=== PATIENT | female | born 2000 | race Two or more races ===

== ENCOUNTER 2019-12-12 07:39 | Emergency (ER) | payer OTHER ==
[2019-12-12] MEDS ORDERED: ACETAMINOPHEN 325 MG TABLET PO ONE (08:38)
[2019-12-12] MEDS ORDERED: NORMAL SALINE 1000 ML 1,000 ML IV ONE (08:41)
--- NOTE | 2019-12-12 08:43 | ER Document Report ---
ED General - General Chief Complaint: Back Pain Stated Complaint: LOW BACK PAIN/18 WEEKS Time Seen by Provider: 12/12/19 08:31 Primary Care Provider: JENNI CHO MD [Primary Care Provider] - Follow up tomorrow Mode of Arrival: Ambulatory Information source: Patient Notes: Patient is presently 17 weeks 6 days with lower back pain. Patient den ies any urinary symptoms vaginal bleeding or vaginal discharge. Patient is G1, P0. Patient is [facility] by [facility]. She reports pain started today. - HPI Onset: This morning Onset/Duration: Gradual Quality of pain: Achy Pain Level: 3 Associated symptoms: denies: Nonproductive cough, Productive cough, Leg swelling, Nausea, Vomiting, Weakness Exacerbated by: Movement Relieved by: Denies Similar symptoms previously: No Recently seen / treated by doctor: No - Related Data Allergies/Adverse Reactions: No Known Allergies Allergy (Verified 12/12/19 08:24) Home Medications: pre Past Medical History - General Information source: Patient - Social History Smoking Status: Never Smoker Frequency of alcohol use: None Drug Abuse: None Occupation: None Lives with: Family Family History: Reviewed & Not Pertinent Patient has homicidal ideation: No - Medical History Medical History: Negative Surgical Hx: Negative Review of Systems - Review of Systems Constitutional: No symptoms reported. denies: Fever EENT: No symptoms reported Cardiovascular: No symptoms reported. denies: Chest pain Respiratory: No symptoms reported. denies: Cough Gastrointestinal: No symptoms reported. denies: Abdominal pain, Nausea, Vomiting Genitourinary: No symptoms reported. denies: Dysuria, Flank pain Female Genitourinary: . denies: Vaginal discharge, Vaginal bleeding Musculoskeletal: Back pain Skin: No symptoms reported Hematologic/Lymphatic: No symptoms reported Neurological/Psychological: No symptoms reported Physical Exam - Vital signs Vitals: Temp Pulse Resp BP Pulse Ox 99.0 F 95 20 118/76 99 12/12/19 07:44 12/12/19 07:44 12/12/19 07:44 12/12/19 07:44 12/12/19 07:44 - General General appearance: Appears well, Alert In distress: None - HEENT Head: Normocephalic, Atraumatic Eyes: Normal Conjunctiva: Normal Nasal: Normal Mouth/Lips: Normal Mucous membranes: Normal Neck: Normal, Supple. No: Lymphadenopathy - Respiratory Respiratory status: No respiratory distress Chest status: Nontender Breath sounds: Normal. No: Rales, Rhonchi, Stridor, Wheezing Chest palpation: Normal - Cardiovascular Rhythm: Regular Heart sounds: S1 appreciated, S2 appreciated Murmur: No - Abdominal Inspection: Gravid female Distension: No distension Bowel sounds: Normal Tenderness: Nontender Organomegaly: No organomegaly - Back Back: Tender - lower lumbar paraspinal tenderness. No: CVA tenderness, Vertebra tenderness - Extremities General upper extremity: Normal inspection, Normal strength General lower extremity: Normal inspection, Normal strength - Neurological Neuro grossly intact: Yes Cognition: Normal Niraj Coma Scale Eye Opening: Spontaneous Warren Coma Scale Verbal: Oriented Niraj Coma Scale Motor: Obeys Commands Niraj Coma Scale Total: 15 - Psychological Associated symptoms: Normal affect, Normal mood - Skin Skin Temperature: Warm Skin Moisture: Dry Skin Color: Normal Course - Re-evaluation Re-evalutation: 12/12/19 10:43 Patient with mild blood and leukocyte esterase pain. Patient without any other acute findings on diagnostic evaluation today. Will culture the urine at this time and encourage outpatient follow-up with her LIFE SCIENCE TEACHER for recheck. The patien t presents with low back pain without signs of spinal cord compression, cauda equina syndrome, infection, aneurysm, or other serious etiology. The patient is neurologically intact. Given the extremely risk of these diagnoses further testing and evaluation for these possibilities does not appear to be indicated at this time. Patient has been instructed to return if the symptoms worsen or change in any way. 12/12/19 18:46 - Vital Signs Vital signs: Temp Pulse Resp BP Pulse Ox 97.7 F 102 H 16 108/68 99 12/12/19 11:12 12/12/19 11:12 12/12/19 11:12 12/12/19 11:12 12/12/19 11:12 - Laboratory Result Diagrams: 12/12/19 09:00 12/12/19 09:00 Laboratory results interpreted by me: 12/12/19 12/12/19 12/12/19 09:00 09:00 09:40 MCV 99 H MCH 34.7 H Sodium 135.9 L BUN 6 L Creatinine 0.37 L Urine Blood SMALL H Ur Leukocyte Esterase TRACE H Labs- All tests 24 hr 12/12/19 12/12/19 12/12/19 09:00 09:00 09:00 WBC 6.3 RBC 3.90 Hgb 13.5 Hct 38.7 MCV 99 H MCH 34.7 H MCHC 34.9 RDW 12.5 Plt Count 165 Lymph % (Auto) 22.9 Owen % (Auto) 8.9 Eos % (Auto) 1.1 Baso % (Auto) 0.5 Absolute Neuts (auto) 4.2 Absolute Lymphs (auto) 1.4 Absolute Monos (auto) 0.6 Absolute Eos (auto) 0.1 Absolute Basos (auto) 0.0 Seg Neutrophils % 66.6 Sodium 135.9 L Potassium 4.5 Chloride 104 Carbon Dioxide 26 Anion Gap 6 BUN 6 L Creatinine 0.37 L Est GFR ( Amer) > 60 Est GFR (MDRD) Non-Af > 60 Glucose 84 Calcium 9.6 Total Bilirubin 0.3 Direct Bilirubin 0.0 Neonat Total Bilirubin Not Reportable Neonat Direct Bilirubin Not Reportable Neonat Indirect Bili Not Reportable AST 20 ALT 18 Alkaline Phosphatase 57 Total Protein 6.9 Albumin 4.1 Urine Color Urine Appearance Urine pH Ur Specific Marion Urine Protein Urine Glucose (UA) Urine Ketones Urine Blood Urine Nitrite Urine Bilirubin Urine Urobilinogen Ur Leukocyte Esterase Urine WBC (Auto) Urine RBC (Auto) Urine Bacteria (Auto) Squamous Epi Cells Auto Urine Mucus (Auto) Urine Ascorbic Acid Blood Type A POSITIVE Rhogam Indicated RHOGAM NOT INDICATED 12/12/19 09:40 WBC RBC Hgb Hct MCV MCH MCHC RDW Plt Count Lymph % (Auto) Owen % (Auto) Eos % (Auto) Baso % (Auto) Absolute Neuts (auto) Absolute Lymphs (auto) Absolute Monos (auto) Absolute Eos (auto) Absolute Basos (auto) Seg Neutrophils % Sodium Potassium Chloride Carbon Dioxide Anion Gap BUN Creatinine Est GFR ( Amer) Est GFR (MDRD) Non-Af Glucose Calcium Total Bilirubin Direct Bilirubin Neonat Total Bilirubin Neonat Direct Bilirubin Neonat Indirect Bili AST ALT Alkaline Phosphatase Total Protein Albumin Urine Color YELLOW Urine Appearance CLEAR Urine pH 7.0 Ur Specific Marion 1.006 Urine Protein NEGATIVE Urine Glucose (UA) NEGATIVE Urine Ketones NEGATIVE Urine Blood SMALL H Urine Nitrite NEGATIVE Urine Bilirubin NEGATIVE Urine Urobilinogen NEGATIVE Ur Leukocyte Esterase TRACE H Urine WBC (Auto) 3 Urine RBC (Auto) 1 Urine Bacteria (Auto) 3+ Squamous Epi Cells Auto 2 Urine Mucus (Auto) RARE Urine Ascorbic Acid NEGATIVE Blood Type Rhogam Indicated - Diagnostic Test Radiology reviewed: Reports reviewed Discharge - Discharge Clinical Impression: Low back pain during Qualifiers: Trimester: third trimester Qualified Code(s): O26.893 - Other specified related conditions, third trimester UTI (urinary tract infection) Qualifiers: Urinary tract infection type: site unspecified Hematuria presence: with hematuria Qualified Code(s): N39.0 - Urinary tract infection, site not specified Condition: Stable Disposition: HOME, SELF-CARE Instructions: Cephalexin ([facility]), Low Back Pain ([facility]), Urinary Tract Infection ([facility]), Warm Packs ([facility]) Additional Instructions: Return immediately for any new or worsening symptoms Followup with your primary care provider, call tomorrow to make a followup appointment Urine culture is pending, will call if you need any different treatment Prescriptions: Cephalexin Monohydrate [Keflex 500 mg Capsule] 500 mg PO BID 3 Days #6 capsule Referrals: JENNI CHO MD [Primary Care Provider] - Follow up tomorrow
[2019-12-12] MEDS ORDERED: ACETAMINOPHEN SOLN 325 MG/10.15 ML UDCUP PO ONE ×2 (09:02→09:40)
[2019-12-12 09:19] LABS: ABSOLUTE EOSINOPHILS # (AUTO) 0.1 10^3/uL (0.0-0.6); ABSOLUTE LYMPHOCYTES (AUTO) 1.4 10^3/uL (0.5-4.7); ABSOLUTE MONOCYTES (AUTO) 0.6 10^3/uL (0.1-1.4); ABSOLUTE NEUT (AUTO) 4.2 10^3/uL (1.7-8.2); BASOPHILS % (AUTO) 0.5 % (0-2); EOSINOPHILS % (AUTO) 1.1 % (0-6); HEMATOCRIT 38.7 % (36.0-47.0); HEMOGLOBIN 13.5 g/dL (12.0-15.5); LYMPHOCYTES % (AUTO) 22.9 % (13-45); MEAN CORPUSCULAR HEMOGLOBIN 34.7 pg (27.0-33.4); MEAN CORPUSCULAR HGB CONC 34.9 g/dL (32.0-36.0); MEAN CORPUSCULAR VOLUME 99 fl (80-97); MONOCYTES % (AUTO) 8.9 % (3-13); PLATELET COUNT 165 10^3/uL (150-450); RED CELL DISTRIBUTION WIDTH 12.5 % (11.5-14.0); SEGMENTED NEUTROPHILS % (AUTO) 66.6 % (42-78); TOTAL CELLS COUNTED % (AUTO) 100 %; WHITE BLOOD COUNT 6.3 10^3/uL (4.0-10.5)
[2019-12-12 09:37] LABS: ALBUMIN 4.1 g/dL (3.5-5.0); ALKALINE PHOSPHATASE 57 U/L (38-126); ANION GAP 6 (5-19); ASPARTATE AMINO TRANSFERASE 20 U/L (14-36); BILIRUBIN,TOTAL 0.3 mg/dL (0.2-1.3); BLOOD UREA NITROGEN 6 mg/dL (7-20); CALCIUM 9.6 mg/dL (8.4-10.2); CARBON DIOXIDE 26 mmol/L (22-30); CHLORIDE 104 mmol/L (98-107); GLUCOSE 84 mg/dL (75-110); POTASSIUM 4.5 mmol/L (3.6-5.0); TOTAL PROTEIN 6.9 g/dL (6.3-8.2)
[2019-12-12 10:14] LABS: APPEARANCE,URINE CLEAR; BILIRUBIN,URINE NEGATIVE (NEGATIVE); COLOR,URINE YELLOW; GLUCOSE, URINE NEGATIVE (NEGATIVE); KETONES,URINE NEGATIVE (NEGATIVE); LEUKOCYTE ESTERASE,URINE TRACE (NEGATIVE); NITRITE,URINE NEGATIVE (NEGATIVE); PROTEIN,URINE NEGATIVE (NEGATIVE); URINE SPECIFIC GRAVITY 1.006; UROBILINOGEN,URINE NEGATIVE mg/dL (<2.0)
--- NOTE | 2019-12-12 10:24 | RADIOLOGY REPORT (SQ) ---
EXAM DESCRIPTION: U/S OB 14+ TRNABD 1GES W/O DOP IMAGES COMPLETED DATE/TIME: 12/12/2019 9:56 am REASON FOR STUDY: low back pain COMPARISON: None. TECHNIQUE: Limited transvaginal grayscale ultrasound for evaluation of specific requested obstetrica l parameters. LIMITATIONS: None. FINDINGS: CERVICAL LENGTH: 4.6 cm. Closed. KIM: 5.8 cm. FHR: 163 beats per minute. PRESENTATION: Cephalic. PLACENTA: Anterior ANATOMY: Not assessed OTHER: Estimated gestational age 16 weeks 6 days. Estimated due date 05/22/2020. Estimated we ight 117 g. IMPRESSION: LIMITED OBSTETRICAL ULTRASOUND WITH MEASURED PARAMETERS DELINEATED ABOVE. Trimester of : Second trimester - 13 weeks 1 day to 27 weeks 6 days. TECHNICAL DOCUMENTATION: JOB ID: [id number] 2010 [employer]- All Rights Reserved Reading location - IP/workstation name: [email or web address]
[2019-12-12 11:13] VITALS: BP 108/68
== END 2019-12-12 11:13 | disposition home or self-care (01) ==
LOC: ER 07:39
DX: O26.893 Other specified pregnancy related conditions, third trimester (principal); M54.5 Low back pain; O23.42 Unspecified infection of urinary tract in pregnancy, second trimester; Z3A.18 18 weeks gestation of pregnancy
CPT/HCPCS: 99284; 96360; 86900; 86901; 36415; 87086; 85025; 80053; 81001; 76805; J7030; J3490

== ENCOUNTER 2020-04-21 09:33 | Outpatient (CLI) | payer OTHER ==
--- NOTE | 2020-04-21 12:57 | RADIOLOGY REPORT (SQ) ---
EXAM DESCRIPTION: U/S PROFILE W/O STRESS IMAGES COMPLETED DATE/TIME: 04/21/2020 12:47 pm REASON FOR STUDY: BPP COMPARISON: None. TECHNIQUE: Limited bae-scale realtime and static images of the fetus to measure specified parameter s. LIMITATIONS: None. FINDINGS: HEART RATE: 153 beats per minute. KIM: 11.3 cm cm. MVP: 4.7 x 4.8 cm cm. BREATHING MOVEMENT: 2 points. MOVEMENT: 2 points. POSTURE AND TONE: 2 points. QUALITATIVE KIM: 2 points. OTHER: Vertex presentation. Gestation of 36 weeks 4 days. IMPRESSION: BIOPHYSICAL PROFILE: 02/14. Trimester of : Third - 28 weeks to delivery COMMENT: BREATHING MOVEMENTS: 2 POINTS: PRESENT 0 POINTS: ABSENT MOTION: 2 POINTS: PRESENT 0 POINTS: ABSENT TONE: 2 POINTS: PRESENT 0 POINTS: ABSENT AMNIOTIC FLUID VOLUME: 2 POINTS: LARGEST POCKET GREATER THAN 2 CM DEPTH. 0 POINTS: NO POCKET OF 2 CM. TECHNICAL DOCUMENTATION: JOB ID: [id number] 2010 [employer]- All Rights Reserved Reading location - IP/workstation name: [email or web address]
== END 2020-04-21 13:30 | disposition home or self-care (01) ==
LOC: LC 09:33
PROVIDERS: ATTEND Obstetrics & Gynecology
DX: O36.8330 Maternal care for abnormalities of the fetal heart rate or rhythm, third trimester, not applicable or unspecified (principal); Z3A.36 36 weeks gestation of pregnancy
CPT/HCPCS: 59025; 76819

== ENCOUNTER 2020-05-05 16:19 | Outpatient (CLI) | payer OTHER ==
--- NOTE | 2020-05-05 17:33 | Non Stress Test Report ---
Non Stress Test Datetime Report Generated by CPN: 05/05/2020 17:33 DEMOGRAPHIC Test Number: 1 Test Number: 1 EGA NST: 38.4 EGA NST: 36.4 INDICATION Indication for Study (NST) Other: Repeat NST Indication for Study (NST) Other: Repeat NST due to undefined decels in office VITAL SIGNS Temperature - NST: 99.0 Temperature - NST: 98.4 Pulse - NST: 110 Pulse - NST: 100 RESP - NST: 16 RESP - NST: 16 NBPSYS NST: 111 NBPSYS NST: 108 NBPDIA NST: 73 NBPDIA NST: 61 MONITORING Monitor Explained: Monitor Explained; Test Explained; Patient Verbalized Understanding Monitor Explained: Monitor Explained; Test Explained; Patient Verbalized Understanding Time on Monitor: 05/05/2020 16:31 Time on Monitor: 04/21/2020 09:49 Time off Monitor: 05/05/2020 16:57 Time off Monitor: 04/21/2020 12:11 NST Duration: 26 NST Duration: 142 NST INTERVENTIONS NST Interventions: PO Hydration; Reposition Patient NST Interventions: PO Hydration; Reposition Patient Physician Notified NST: Dr. Finnegan BABY A: [id number] BABY A Movement : Present Movement : Present Contraction Frequency : None Contraction Frequency : irreg FHR Baseline : 115 FHR Baseline : 135 Accelerations : 15X15 Accelerations : 15X15 Decelerations : None Decelerations : Variable Variability : Moderate 6-25bpm Variability : Moderate 6-25bpm NST Review: Meets Criteria for Reactive NST NST Review: Meets Criteria for Reactive NST NST Review and Verified By : Meli Matute RN NST Results: Reactive NST Results: Reactive NST COMMENTS NST Comments: noted 3 variable decels during monitoring. Provider aware. BPP done. NST REPORT Report Trigger: Send Report
== END 2020-05-05 17:22 | disposition home or self-care (01) ==
LOC: LC 16:19
PROVIDERS: ATTEND Obstetrics & Gynecology Gynecology
DX: O36.8330 Maternal care for abnormalities of the fetal heart rate or rhythm, third trimester, not applicable or unspecified (principal); Z3A.38 38 weeks gestation of pregnancy
CPT/HCPCS: 59025

== ENCOUNTER 2020-05-10 18:20 | Inpatient (IN) | payer OTHER ==
[2020-05-10] MEDS ORDERED: OXYTOCIN 10 UNIT/ML VIAL ONE (18:24)
[2020-05-10] MEDS ORDERED: LIDOCAINE 1% INJ-PF (10 MG/ML) 30 ML SDV ONE (18:24)
[2020-05-10] MEDS ORDERED: OXYTOCIN/0.9 % SODIUM CHLORIDE 30 UNIT/500 ML RTUINJ ONE (18:24)
[2020-05-10] MEDS ORDERED: MISOPROSTOL 0.2 MG TABLET ONE (18:24)
[2020-05-10] MEDS ORDERED: MAG HYDROX/AL HYDROX/SIMETH SUSP 30 ML UDCUP PO PRN (18:28)
[2020-05-10] MEDS ORDERED: OXYTOCIN/0.9 % SODIUM CHLORIDE 30 UNIT/500 ML RTUINJ IV PRN (18:28)
[2020-05-10] MEDS ORDERED: DINOPROSTONE 10 MG VAGINAL INSERT.SR PV ONE (18:28)
[2020-05-10] MEDS ORDERED: RINGERS SOLUTION,LACTATED 300 ML IV ONE (18:28)
[2020-05-10] MEDS ORDERED: ACETAMINOPHEN 325 MG TABLET PO PRN (18:28)
[2020-05-10] MEDS ORDERED: RINGERS SOLUTION,LACTATED 1,000 ML IV PRN (18:28)
[2020-05-10] MEDS ORDERED: ZOLPIDEM TARTRATE 5 MG TABLET PO PRN (18:28)
[2020-05-10 18:59] LABS: APPEARANCE,URINE CLEAR; BILIRUBIN,URINE NEGATIVE (NEGATIVE); COLOR,URINE YELLOW; GLUCOSE, URINE NEGATIVE (NEGATIVE); KETONES,URINE NEGATIVE (NEGATIVE); LEUKOCYTE ESTERASE,URINE NEGATIVE (NEGATIVE); NITRITE,URINE NEGATIVE (NEGATIVE); PROTEIN,URINE NEGATIVE (NEGATIVE); URINE SPECIFIC GRAVITY 1.017; UROBILINOGEN,URINE NEGATIVE mg/dL (<2.0)
[2020-05-10 19:02] LABS: ABSOLUTE BASOPHILS # (AUTO) 0.1 10^3/uL (0.0-0.2); ABSOLUTE EOSINOPHILS # (AUTO) 0.1 10^3/uL (0.0-0.6); ABSOLUTE LYMPHOCYTES (AUTO) 1.7 10^3/uL (0.5-4.7); ABSOLUTE MONOCYTES (AUTO) 0.9 10^3/uL (0.1-1.4); ABSOLUTE NEUT (AUTO) 6.8 10^3/uL (1.7-8.2); BASOPHILS % (AUTO) 0.5 % (0-2); EOSINOPHILS % (AUTO) 0.9 % (0-6); HEMATOCRIT 36.2 % (36.0-47.0); HEMOGLOBIN 12.4 g/dL (12.0-15.5); LYMPHOCYTES % (AUTO) 17.5 % (13-45); MEAN CORPUSCULAR HEMOGLOBIN 31.6 pg (27.0-33.4); MEAN CORPUSCULAR HGB CONC 34.2 g/dL (32.0-36.0); MEAN CORPUSCULAR VOLUME 93 fl (80-97); MONOCYTES % (AUTO) 9.8 % (3-13); PLATELET COUNT 178 10^3/uL (150-450); RED BLOOD COUNT 3.92 10^6/uL (3.72-5.28); RED CELL DISTRIBUTION WIDTH 13.8 % (11.5-14.0); SEGMENTED NEUTROPHILS % (AUTO) 71.3 % (42-78); TOTAL CELLS COUNTED % (AUTO) 100 %; WHITE BLOOD COUNT 9.5 10^3/uL (4.0-10.5)
[2020-05-10] MEDS ORDERED: DINOPROSTONE 10 MG VAGINAL INSERT.SR ONE (19:12)
[2020-05-10 19:22] LABS: URINE AMPHETAMINES SCREEN NEGATIVE; URINE BARBITURATES SCREEN NEGATIVE; URINE BENZODIAZEPINES SCREEN NEGATIVE; URINE COCAINE SCREEN NEGATIVE; URINE MARIJUANA (THC) SCREEN NEGATIVE; URINE METHADONE SCREEN NEGATIVE; URINE PHENCYCLIDINE SCREEN NEGATIVE
[2020-05-10] MEDS ORDERED: ACETAMINOPHEN SOLN 325 MG/10.15 ML UDCUP ONE (23:21)
[2020-05-11] MEDS ORDERED: ACETAMINOPHEN SOLN 325 MG/10.15 ML UDCUP PO ONE (00:30)
--- NOTE | 2020-05-11 04:04 | Admission Physical ---
Datetime Report Generated by CPN: 05/11/2020 04:04 CURRENT ADMISSION Chief Complaint: Scheduled Induction of Labor Indication for Induction- Other: Induction for IUGR Admit Impression : Term, Intrauterine Admit Plan: Admit to Unit; Initiate Labor Induction Protocol ALLERGIES Medication Allergies: No Medication Allergies: pollen extracts (05/05/2020) Latex: No Latex Allergies Food Allergies: none Environmental Allergies: pollen OBSTETRICAL HISTORY EDC: 05/15/2020 00:00 : 1 Para: 0 Term: 0 : 0 SAB: 0 IAB: 0 Ectopic: 0 Livin Cesareans: 0 VBACs: 0 Multiple Births: 0 Gestational Diabetes: No Rh Sensitization: No Incompetent Cervix: No ABIMAEL: No Infertility: No ART Treatment: No Uterine Anomaly: No IUGR: Yes Hx Previous C/S: No Macrosomia: No Hx Loss/Stillborn: No PIH: No Hx : No Placenta Previa/Abruption: No Depression/PP Depression: No PTL/PROM: No Post Hemorrhage: No Current Procedures: Ultrasound; NST Obstetrical History Comments: G1- current IUGR 4% SEE RECORDS Alcohol: No Marijuana : No Cocaine: No Other Illicit Drugs: No Cigarettes: Never Smoker. [id number] MEDICAL HISTORY Diabetes: No Blood Transfusion: No Pulmonary Disease (Asthma, TB): No Breast Disease: No Hypertension: No Core Cutter And Reamer Surgery: No Heart Disease: No Hosp/Surgery: No Autoimmune Disorder: No Anesthetic Complications: No Kidney Disease: No Abnormal Pap Smear: No Neuro/Epilepsy: No Psychiatric Disorders: No Other Medical Diseases: No Hepatitis/Liver Disease: No Significant Family History: No Varicosities/Phlebitis: No Trauma/Violence : No Thyroid Dysfunction: No INFECTIOUS HISTORY Gonorrhea: No Genital Herpes: No Chlamydia: No Tuberculosis: No Syphilis: No Hepatitis: No HIV/AIDS Exposure: No Rash or Viral Illness: No HPV: No PHYSICAL EXAM General: Normal HEENT: Normal Neurologic: Normal Thyroid: Normal Heart: Normal Lungs: Normal Breast: Deferred Back: Normal Abdomen: Normal Genitourinary Exam: Normal Extremities: Normal DTRs: Normal Pelvic Type: Adequate Vital Signs: Reviewed VAGINAL EXAM Dilatation: 1 Effacement: 50 Station: -2 MEMBRANES Pooling: Negative Membranes: Intact FETUS A EGA: 39.3 Monitoring: External US FHR- Baseline: 120 Variability: Moderate 6-25bpm Decelerations: None FHR Category: Category I Admit Comment: efw 7 lbs PLANS FOR LABOR AND DELIVERY Labor and Delivery: None Pain Management: Epidural Feeding Preference: Breast Benefit of Breast Feed Discussed: Yes Circumcision: Yes INFORMED CONSENT Signature: with User ID: [email or web address]
[2020-05-11] MEDS ORDERED: DINOPROSTONE 10 MG VAGINAL INSERT.SR PV ONE (08:18)
[2020-05-11] MEDS ORDERED: DINOPROSTONE 10 MG VAGINAL INSERT.SR ONE (09:05)
[2020-05-11] MEDS ORDERED: FENTANYL CITRATE INJ/PF 100 MCG/2 ML AMPUL IV ONE (09:16)
[2020-05-11] MEDS ORDERED: PROMETHAZINE HCL INJ 25 MG/1 ML VIAL IV ONE (09:16)
[2020-05-11] MEDS ORDERED: PROMETHAZINE HCL INJ 25 MG/1 ML VIAL ONE (09:20)
[2020-05-11] MEDS ORDERED: FENTANYL CITRATE INJ/PF 100 MCG/2 ML AMPUL ONE (09:21)
[2020-05-11] MEDS ORDERED: ACETAMINOPHEN 1,000 MG/100 ML RTUPB IV ONE (12:33)
[2020-05-11] MEDS ORDERED: ACETAMINOPHEN 1,000 MG/100 ML RTUPB IV SCH (13:00)
[2020-05-11] MEDS ORDERED: ONDANSETRON HCL INJ/PF 4 MG/2 ML SDV ONE (13:58)
[2020-05-11] MEDS ORDERED: NALBUPHINE HCL INJ 10 MG/1 ML AMPULE INJ ONE (18:42)
[2020-05-11] MEDS ORDERED: CEFTRIAXONE 1 GM/D5W RTU 1 GM/50 ML RTUPB IV ONE (18:45)
[2020-05-11] MEDS ORDERED: NALBUPHINE HCL INJ 10 MG/1 ML AMPULE ONE (18:47)
[2020-05-11] MEDS ORDERED: CEFTRIAXONE INJ 1000 MG VIAL ONE (18:47)
[2020-05-12] MEDS ORDERED: EPHEDRINE SULFATE INJ 50 MG/1 ML AMPULE ONE (05:09)
[2020-05-12] MEDS ORDERED: FENTANYL/BUPIVACAINE/NS/PF 300 MCG/150 ML RTUINJ EPI ONE (05:09)
[2020-05-12] MEDS ORDERED: ROPIVACAINE HCL 0.2% INJ/PF (2 MG/ML) 20 ML SDV ONE (05:10)
[2020-05-12] MEDS ORDERED: MAGNESIUM HYDROXIDE SUSP 30 ML UDCUP PO PRN (12:09)
[2020-05-12] MEDS ORDERED: ZOLPIDEM TARTRATE 5 MG TABLET PO PRN (12:09)
[2020-05-12] MEDS ORDERED: DIPHENHYDRAMINE HCL 25 MG CAPSULE PO PRN (12:09)
[2020-05-12] MEDS ORDERED: MEASLES,MUMPS&RUBELLA VACC/PF 0.5 ML VIAL SUBCUT PRN (12:09)
[2020-05-12] MEDS ORDERED: ACETAMINOPHEN 650 MG SUPP.RECT PR PRN (12:09)
[2020-05-12] MEDS ORDERED: NA PHOS,M-B/NA PHOS,DI-BA (ADULT) 133 ML ENEMA PR PRN (12:09)
[2020-05-12] MEDS ORDERED: PROMETHAZINE HCL INJ 25 MG/1 ML VIAL IV PRN (12:09)
[2020-05-12] MEDS ORDERED: OXYTOCIN/0.9 % SODIUM CHLORIDE 30 UNIT/500 ML RTUINJ IV PRN (12:09)
[2020-05-12] MEDS ORDERED: AMPICILLIN SOD/SULBACTAM 3 GM VIAL IV ONE ×2 (12:09→12:27)
[2020-05-12] MEDS ORDERED: PROMETHAZINE HCL 25 MG SUPP.RECT PR PRN (12:09)
[2020-05-12] MEDS ORDERED: DIBUCAINE 1% OINTMENT 28 GM TP PRN (12:09)
[2020-05-12] MEDS ORDERED: BENZOCAINE/MENTHOL AEROSOL SPRAY 56 ML TOP PRN (12:09)
[2020-05-12] MEDS ORDERED: GLYCERIN/WITCH HAZEL LEAF 1 EACH MED..WIPE TP PRN (12:09)
[2020-05-12] MEDS ORDERED: PSEUDOEPHEDRINE HCL 30 MG TABLET PO PRN (12:09)
[2020-05-12] MEDS ORDERED: PROMETHAZINE HCL 25 MG TABLET PO PRN (12:09)
[2020-05-12] MEDS ORDERED: DIPH/PERTUSS(ACELL)/TETANUS VAC/PF 0.5 ML SYR (>=10YO) IM PRN (12:09)
[2020-05-12] MEDS ORDERED: AMPICILLIN SOD/SULBACTAM 3 GM VIAL ONE (13:03)
--- NOTE | 2020-05-12 14:43 | Delivery Summary ---
Del Sum A-C Datetime Report Generated by CPN: 05/12/2020 14:42 DELIVERY PERSONNEL DELIVERY PERSONNEL: [id number] Delivery Doctor:: Maria Guadalupe Short MD Nurse Infant Toddler Lead Teacher Certified:: Carol Madrigal CNM Labor and Delivery Nurse:: Katie Pagan RNsupervisor slate splitting Nurse:: Sera Mon RN Nursery Nurse:: Lavonne Durand RN MATERNAL INFORMATION Delivery Anesthesia: Local; Epidural Medications During Delivery: 1% lidocaine Medications After Delivery: Pitocin 30 Units in 500ml NS/D5W Delivery QBL: 100 Maternal Complications: None Provider Comments: Vacuum assisted vag delivery of male DAVE. Dr. Short applied vac 450 mmhg x1 pull, no pop offs. Bodyand cord delivered by me. Infant vigorous, to mothers abd, dried and stimulated. Cord clamped x 2 cut per FOB. Lacerations repaired as above. Retained placenta with difficult manual removal after 30 minutes. QBL 50. Fundus firmed immediately. Placenta sent for pathology. Mother and infant stable. LABOR SUMMARY EDC: 05/15/2020 00:00 No. Babies in Womb: 1 Attempted: No Labor Anesthesia: Epidural LABOR INFORMATION Reason for Induction: Intrauterine Growth Retardation Complete Dilatation: 05/12/2020 09:21 Cervical Ripening Agents: Cervidil Other Ripening Agents: cervidil removed Oxytocin: Induction Group B Beta Strep: Negative Antibiotics # of Doses: n/a Name of Antibiotic Given: n/a Steroids Given: None Reason Steroids Not Administered: Not Applicable MEMBRANES Membranes Rupture Method: Spontaneous Rupture of Membranes: 05/12/2020 04:49 Length of Rupture (hr): 6.38 Amniotic Fluid Color: Clear Amniotic Fluid Amount: Moderate Amniotic Fluid Odor: Normal STAGES OF LABOR Stage 2 hr: 1 Stage 2 min: 51 Stage 3 hr: 0 Stage 3 min: 33 VAGINAL DELIVERY Episiotomy: None Laceration #1: Perineal Laceration Extension #1: First Degree Laceration Repair: Yes Laceration Repair Note: 2.0 chromic used for repair of perineal and labial lacerations in usual fashion under epidural anesthesia Sponge Count Correct: Yes CSECTION DELIVERY Primary Indication: N/A Secondary Indication: N/A CSection Incidence: N/A Labor: N/A Elective: N/A CSection Incision: N/A BABY A INFORMATION Infant Delivery Date/Time: 05/12/2020 11:12 Method of Delivery: Vaginal Nurse Controlled Delivery: No Born in Route : No : N/A Forceps: N/A Vacuum Extraction: Successful Shoulder Dystocia : No PRESENTATION/POSITION BABY A Presentation: Cephalic Cephalic Presentation: Vertex Vertex Position: Left Occipital Anterior Breech Presentation: N/A PLACENTA INFORMATION BABY A Placenta Delivery Time : 05/12/2020 11:45 Placenta Method of Delivery: Manual Removal Placenta Status: Delivered SCORES BABY A Heart Rate 1 min: >100 bpm Resp Effort 1 min: Good Cry Reflex Irritability 1 min: Cough or Sneeze or Pulls Away Muscle Tone 1 min: Active Motion Color 1 min: Blue/Pale SCORE 1 MIN: 8 Heart Rate 5 min: >100 bpm Resp Effort 5 min: Good Cry Reflex Irritability 5 min: Cough or Sneeze or Pulls Away Muscle Tone 5 min: Active Motion Color 5 min: Body [place], Extremities Blue SCORE 5 MIN: 9 INFORMATION BABY A Gestational Age at Delivery: 39.4 Gestational Status: Full Term- 39- 40.6 Weeks Outcome : Liveborn Condition : Stable Sex: Male IDENTIFICATION BABY A Verification Date/Time: 05/12/2020 11:33 ID Band Number: [id number] Mother's Name Verified: Yes RN Verifying : Kate Pagan RN Additional Verifying Personnel: Regine Plunkett JEWELRY RACKER WEIGHT/LENGTH BABY A Infant Birthweight (gm): 2427 Infant Weight (lb): 5 Infant Weight (oz): 6 Infant Length (in): 18.25 Infant Length (cm): 46.36 CORD INFORMATION BABY A No. Cord Vessels: 3 Nuchal Cord : N/A Cord Blood Taken: Yes-For Storage (Mom's Blood type +) Suction: None ASSESSMENT BABY A Skin to Skin: Yes Skin to Skin Time (min): 60 BABY B INFORMATION : N/A SIGNATURES Assignment: Maria Guadalupe Han, MD Signature: with User ID: [email or web address] : with User ID: [email or web address] : I was personally available for consultation and serving as supervising physician for the MLP.
--- NOTE | 2020-05-12 14:43 | Birth Certificate Data ---
Cert Data Datetime Report Generated by CPN: 05/12/2020 14:42 CERTIFICATE DATA Delivery Provider: Maria Guadalupe Short MD (04/21/2020 09:34:Sera Mon RN) 47a. Care: Yes (04/21/2020 09:34:Myesha Ramesh RN) 47b. Date of First Visit: 12/06/2019 00:00 (04/21/2020 09:34:Myesha Ramesh RN) 47c. Date of Last Visit: 05/08/2020 00:00 (04/21/2020 09:34:Myesha Ramesh RN) 47d. Number of Visits: 12 (04/21/2020 09:34:Myesha Ramesh RN) 48a. Number of Prev Live Births: 0 (04/21/2020 09:34:Myesha Ramesh RN) 48b. Now Livin (04/21/2020 09:34:Katie Pagan RN) 48c. Live Births Now : 0 (04/21/2020 09:34:QS system process) 48e. Losses: 0 (04/21/2020 09:34:Myesha Ramesh RN) RISK FACTORS IN THIS 49a. Diabetes: No (04/21/2020 09:34:Guerita Bustamante RN) 49b. Hypertension: No (04/21/2020 09:34:Guerita Bustamante RN) 49c. Previous Births: 0 (04/21/2020 09:34:Jaki Bonilla RN) 49d. Stillborns: No (04/21/2020 09:34:Myesha Ramesh RN) 49d. IUGR: Yes (04/21/2020 09:34:Myesha Ramesh RN) 49e. Infertility Treatment: No (04/21/2020 09:34:Guerita Bustamante RN) 49f. Previous Cesareans: 0 (04/21/2020 09:34:Jaki Bonilla RN) Mother's Height 50b. Height Inches: 59 (05/12/2020 14:17:QS system process) Mother's Weight 51a. Pre- Weight (lbs): 118 (04/21/2020 09:34:Myesha Ramesh RN) 51b. Weight at Delivery (lbs): 141 (05/12/2020 14:17:QS system process) 52. Dt Last Normal Menses Began: 08/09/2019 00:00 (04/21/2020 09:34:Myesha Ramesh RN) Infections Present/Treated 53a. Gonorrhea: No (04/21/2020 09:34:Guerita Bustamante RN) Results this Hospital Visit : Negative (04/21/2020 09:34:Sera Mon RN) 53b. Syphilis: No (04/21/2020 09:34:Guerita Bustamante RN) Results this Hospital Visit: NONREACTIVE (05/10/2020 18:49:QS system process) 53c. Chlamydia: No (04/21/2020 09:34:Guerita Bustamante RN) Results this Hospital Visit: Negative (04/21/2020 09:34:Sera Mon RN) 53d. Hepatitis B: No (04/21/2020 09:34:Myesha Ramesh RN) Results this Hospital Visit: Negative (04/21/2020 09:34:Sera Mon RN) 53e. Hepatitis C: Negative (04/21/2020 09:34:Sera Mon RN) 53h. Mother Tested for HBsAG: Yes (04/21/2020 09:34:Sera Mon RN) 53i. Date Tested: 12/06/2019 00:00 (04/21/2020 09:34:Sera Mon RN) 53j. Test Result: Negative (04/21/2020 09:34:Sera Mon RN) Obstetric Procedures 54a, b, c. Obstetric Procedures: Ultrasound; NST (04/21/2020 09:34:Myesha Ramesh RN) Cigarette Smoking Cigarette Smoking: Never Smoker. [id number] (04/21/2020 09:34:Myesha Ramesh RN) 55a. 3 Months Before Preg - Ci (04/21/2020 09:34:Guerita Bustamante RN) 55a. Packs: 0 (04/21/2020 09:34:Guerita Bustamante RN) 55b. 1st Trimester of Preg- Ci (04/21/2020 09:34:Guerita Bustamante RN) 55b. Packs: 0 (04/21/2020 09:34:Guerita Bustamante RN) 55c. 2nd Trimester of Preg- Ci (04/21/2020 09:34:Guerita Bustamante RN) 55c. Packs: 0 (04/21/2020 09:34:Gueirta Bustamante RN) 55d. 3rd Trimester of Preg- Ci (04/21/2020 09:34:Guerita Bustamante RN) 55d. Packs: 0 (04/21/2020 09:34:Guerita Bustamante RN) Onset of Labor 56a. PROM >12 Hrs: 6.38 (04/21/2020 09:34:QS system process) 57a. Induction of Labor: Induction (04/21/2020 09:34:Sera Mon RN) 57a. Induction of Labor: Cervidil (05/11/2020 09:50:Sera Mon RN) 57a. Induction of Labor: cervidil removed (05/11/2020 21:11:Guerita Bustamante RN) 57c. Non-Vertex Presentation A: Vertex (04/21/2020 09:34:Sera Mon RN) 57d. Steroids - Lung Mat: None (04/21/2020 09:34:Sera Mon RN) 57d. Steroids - Lung Mat: Not Applicable (04/21/2020 09:34:Sera Mon RN) 57g. Moderate/Heavy Meconium: Clear (05/12/2020 04:49:Guerita Bustamante RN) 57h. Intolerance of Labor: N/A (04/21/2020 09:34:Katie Pagan RN) : N/A (04/21/2020 09:34:Katie Pagan RN) 57i. Epidural/Spinal Anesthesia: Epidural (04/21/2020 09:34:Sera Mon RN) Method of Delivery 58a. Forceps - Unsuccessful A: N/A (04/21/2020 09:34:Sera Mon RN) 58b. Vacuum - Unsuccessful A: Successful (04/21/2020 09:34:Sera Mon RN) 58c. Presentation at 58c. Presentation at - A : Vertex (04/21/2020 09:34:Sera Mon RN) 58c. Presentation at - A : N/A (04/21/2020 09:34:Sera Mon RN) 58c. Presentation at - A : Cephalic (05/12/2020 06:55:Guerita Bustamante RN) Final Route and Method of Del 58d. Baby A Route/Delivery: Vaginal (04/21/2020 09:34:Sera Mon RN) 58e. Trial of Labor Attempted: No (04/21/2020 09:34:Sera Mon RN) 58e. Trial of Labor Attempted A: N/A (04/21/2020 09:34:Sera Mon RN) 58e. Trial of Labor Attempted B: N/A (04/21/2020 09:34:Sera Mon RN) Maternal Morbidity 59b. 3rd or 4th Degree Lacs: Perineal (04/21/2020 09:34:Sera Elieser, RN) Birthweight Baby A: 2427 (04/21/2020 09:34:Katie Pagan, RN) 60a. Pounds : 5 (04/21/2020 09:34:QS system process) 60b. Ounces: 6 (04/21/2020 09:34:QS system process) 61. GA at Delivery Baby A: 39.4 (04/21/2020 09:34:Sera Innacristoferamarilis, RN) : Full Term- 39- 40.6 Weeks (04/21/2020 09:34:QS system process) 62a. 5 Minute Baby A: 9 (04/21/2020 09:34:QS system process)
[2020-05-12] MEDS: FERROUS SULFATE 325 MG TABLET PO SCH (17:01)
[2020-05-12] MEDS: DOCUSATE SODIUM 100 MG CAPSULE PO SCH (17:01)
[2020-05-12] MEDS: IBUPROFEN 800 MG TABLET PO SCH ×2 (17:02→23:01)
[2020-05-12] MEDS: FAMOTIDINE 20 MG TABLET PO SCH (23:02)
[2020-05-13] MEDS: IBUPROFEN 800 MG TABLET PO SCH ×2 (00:46→05:45)
[2020-05-13] MEDS: FAMOTIDINE 20 MG TABLET PO SCH ×2 (00:47→11:36)
[2020-05-13 07:22] LABS: HEMATOCRIT 30.8 % (36.0-47.0); MEAN CORPUSCULAR HEMOGLOBIN 31.2 pg (27.0-33.4); MEAN CORPUSCULAR HGB CONC 33.5 g/dL (32.0-36.0); MEAN CORPUSCULAR VOLUME 93 fl (80-97); PLATELET COUNT 161 10^3/uL (150-450); RED BLOOD COUNT 3.31 10^6/uL (3.72-5.28); RED CELL DISTRIBUTION WIDTH 14.1 % (11.5-14.0); WHITE BLOOD COUNT 12.4 10^3/uL (4.0-10.5)
[2020-05-13 07:29] LABS: HEMOGLOBIN 10.3 g/dL (12.0-15.5)
[2020-05-13 08:09] VITALS: BP 114/58
[2020-05-13] MEDS ORDERED: PRENATAL VITAMIN W DHA CAPSULE PO SCH (10:00)
[2020-05-13] MEDS ORDERED: SENNOSIDES/DOCUSATE 8.6-50 MG 1 EACH TABLET PO SCH (10:00)
[2020-05-13] MEDS: FERROUS SULFATE 325 MG TABLET PO SCH (11:35)
[2020-05-13] MEDS: DOCUSATE SODIUM 100 MG CAPSULE PO SCH (11:35)
--- NOTE | 2020-05-13 12:02 | PDOC PROGRESS REPORT ---
Subjective-OB Progress Note for:: 05/13/20 Subjective: 19yo G1 now P1 s/p VAVD ppd 1. Reports pain well controlled with medication, no other concerns at this time. Physical Exam (OB) Vital Signs: Temp Pulse Resp BP Pulse Ox 97.9 F 99 18 114/58 L 99 05/13/20 10:00 05/13/20 07:49 05/13/20 07:49 05/13/20 07:49 05/13/20 07:49 Intake & Output 05/12/20 05/13/20 05/14/20 06:59 06:59 06:59 Intake Total 1080 Output Total 3102 Balance -2021 - General General Appearance: Appears well In distress: None - PIH/Pre-Eclampsia DTR's: 1 + Clonus: Negative Headache: Absent Epigastric Pain: No Visual Changes: No - Maternal Morbidity 59. Maternal Morbidity (serious complications experinced by the mother associated with labor and delivery: None of the above - Episiotomy/Laceration Site Condition: Well Approximated - Lochia Lochia Amount: Scant < 10 ml Lochia Color: Rubra/Red - Abdomen Description: Soft Hernia Present: No Fundal Description: Firm Fundal Height: u/u - u/2 - Respiratory Respiratory Status: No respiratory distress - Extremities Upper extremity: Normal inspection Lower extremities: Normal inspection - Neurological Cognition: Normal Orientation: AAOx4 - Psychological Associated symptoms: Normal affect, Normal mood Objective-Diagnostic Laboratory: 05/13/20 06:30 05/13/20 06:30 WBC 12.4 H RBC 3.31 L Hgb 10.3 L D Hct 30.8 L MCV 93 MCH 31.2 MCHC 33.5 RDW 14.1 H Plt Count 161 05/10/20 18:25 Clean Catch Midstream Urine Culture - Final 5,000 col/ml Assessment and Plan(PN) - Assessment and Plan (1) Laceration, obstetrical, first degree Is this a current diagnosis for this admission?: Yes Plan: continue to monitor for s/s of infection (2) Non-reassuring electronic monitoring tracing Is this a current diagnosis for this admission?: Yes Plan: delivered (3) Vacuum-assisted vaginal delivery Is this a current diagnosis for this admission?: Yes Plan: routine pp care (4) Retained placenta without hemorrhage Is this a current diagnosis for this admission?: Yes Plan: continue to monitor for s/s of infection (5) IUGR (intrauterine growth restriction) affecting care of mother Qualifiers: Fetus number: single or unspecified fetus Trimester: third trimester Qualified Code(s): O36.5930 - Maternal care for other known or suspected poor growth, third trimester, not applicable or unspecified Is this a current diagnosis for this admission?: Yes Plan: delivered, doing well. at time of visit - Time Spent with Patient Time with patient: Less than 15 minutes Medications reviewed and adjusted accordingly: Yes - Disposition Anticipated Discharge Disposition: Home, Self Care Anticipated Discharge Timeframe: within 24 hours
--- NOTE | 2020-05-13 14:14 | PDOC DISCHARGE SUMMARY ---
Impression - Admit/DC Date/PCP Admission Date/Primary Care Provider: 05/10/20 18:20 JENNI CHO MD Discharge Date: 05/13/20 - Discharge Diagnosis (1) Laceration, obstetrical, first degree Is this a current diagnosis for this admission?: Yes (2) Non-reassuring electronic monitoring tracing Is this a current diagnosis for this admission?: Yes (3) Vacuum-assisted vaginal delivery Is this a current diagnosis for this admission?: Yes (4) Retained placenta without hemorrhage Is this a current diagnosis for this admission?: Yes (5) IUGR (intrauterine growth restriction) affecting care of mother Is this a current diagnosis for this admission?: Yes - Assessment Summary: 19yo G2 now P1 s/p ppd 1. Desires early discharge, ok'd by motor coach bus driver- stable and ready for discharge. Denies any concerns, understands warning s/s. - Additional Information Resuscitation Status: Full Code Discharge Diet: As Tolerated, Regular Discharge Activity: Activity As Tolerated, Walk Frequently Referrals: JENNI CHO MD [Primary Care Provider] - Prescriptions: Ibuprofen [Motrin 800 mg Tablet] 800 mg PO Q8HP PRN #20 tablet PRN Reason: Docusate Sodium [Colace 100 mg Capsule] 100 mg PO BID #60 capsule Home Medications: 95/Iron Fum/Folic/Dha [ + Dha Combo Pack] 1 each PO DAILY 04/21/20 Docusate Sodium [Colace 100 mg Capsule] 100 mg PO BID #60 capsule 05/13/20 Ibuprofen [Motrin 800 mg Tablet] 800 mg PO Q8HP PRN #20 tablet 05/13/20 Hospital Course 59. Maternal Morbidity (serious complications experinced by the mother associated with labor and delivery: None of the above Results Laboratory Results: WBC 12.4 10^3/uL (4.0-10.5) H 05/13/20 06:30 RBC 3.31 10^6/uL (3.72-5.28) L 05/13/20 06:30 Hgb 10.3 g/dL (12.0-15.5) L D 05/13/20 06:30 Hct 30.8 % (36.0-47.0) L 05/13/20 06:30 MCV 93 fl (80-97) 05/13/20 06:30 MCH 31.2 pg (27.0-33.4) 05/13/20 06:30 MCHC 33.5 g/dL (32.0-36.0) 05/13/20 06:30 RDW 14.1 % (11.5-14.0) H 05/13/20 06:30 Plt Count 161 10^3/uL (150-450) 05/13/20 06:30 Lymph % (Auto) 17.5 % (13-45) 05/10/20 18:49 [place] % (Auto) 9.8 % (3-13) 05/10/20 18:49 Eos % (Auto) 0.9 % (0-6) 05/10/20 18:49 Baso % (Auto) 0.5 % (0-2) 05/10/20 18:49 Absolute Neuts (auto) 6.8 10^3/uL (1.7-8.2) 05/10/20 18:49 Absolute Lymphs (auto) 1.7 10^3/uL (0.5-4.7) 05/10/20 18:49 Absolute Monos (auto) 0.9 10^3/uL (0.1-1.4) 05/10/20 18:49 Absolute Eos (auto) 0.1 10^3/uL (0.0-0.6) 05/10/20 18:49 Absolute Basos (auto) 0.1 10^3/uL (0.0-0.2) 05/10/20 18:49 Seg Neutrophils % 71.3 % (42-78) 05/10/20 18:49 Urine Color YELLOW 05/10/20 18:25 Urine Appearance CLEAR 05/10/20 18:25 Urine pH 6.0 (5.0-9.0) 05/10/20 18:25 Ur Specific [place] 1.017 05/10/20 18:25 Urine Protein NEGATIVE mg/dL (NEGATIVE) 05/10/20 18:25 Urine Glucose (UA) NEGATIVE mg/dL (NEGATIVE) 05/10/20 18:25 Urine Ketones NEGATIVE mg/dL (NEGATIVE) 05/10/20 18:25 Urine Blood SMALL (NEGATIVE) H 05/10/20 18:25 Urine Nitrite NEGATIVE (NEGATIVE) 05/10/20 18:25 Urine Bilirubin NEGATIVE (NEGATIVE) 05/10/20 18:25 Urine Urobilinogen NEGATIVE mg/dL (<2.0) 05/10/20 18:25 Ur Leukocyte Esterase NEGATIVE (NEGATIVE) 05/10/20 18:25 Urine Ascorbic Acid NEGATIVE (NEGATIVE) 05/10/20 18:25 Urine Opiates Screen NEGATIVE 05/10/20 18:25 Urine Methadone Screen NEGATIVE 05/10/20 18:25 Ur Barbiturates Screen NEGATIVE 05/10/20 18:25 Ur Phencyclidine Scrn NEGATIVE 05/10/20 18:25 Ur Amphetamines Screen NEGATIVE 05/10/20 18:25 U Benzodiazepines Scrn NEGATIVE 05/10/20 18:25 Urine Cocaine Screen NEGATIVE 05/10/20 18:25 U Marijuana (THC) Screen NEGATIVE 05/10/20 18:25 RPR NONREACTIVE (NONREACTIVE) 05/10/20 18:49 Blood Type A POSITIVE 05/10/20 18:49 Antibody Screen NEGATIVE 05/10/20 18:49
== END 2020-05-13 19:30 | disposition home or self-care (01) | DRG 807 ==
LOC: LR 18:20 → 2S 05-12 14:17
PROVIDERS: ADMIT Obstetrics & Gynecology; ATTEND Obstetrics & Gynecology
PROC: 10D07Z6 Extraction of Products of Conception, Vacuum, Via Natural or Artificial Opening (ICD-10-PCS; principal; 2020-05-12)
PROC: 0HQ9XZZ Repair Perineum Skin, External Approach (ICD-10-PCS; 2020-05-12)
PROC: 3E033VJ Introduction of Other Hormone into Peripheral Vein, Percutaneous Approach (ICD-10-PCS; 2020-05-12)
DX: O36.5930 Maternal care for other known or suspected poor fetal growth, third trimester, not applicable or unspecified (principal); Z37.0 Single live birth; Z20.828 Contact with and (suspected) exposure to other viral communicable diseases; O70.0 First degree perineal laceration during delivery; O76 Abnormality in fetal heart rate and rhythm complicating labor and delivery; O73.0 Retained placenta without hemorrhage; Z28.20 Immunization not carried out because of patient decision for unspecified reason; Z3A.39 39 weeks gestation of pregnancy
CPT/HCPCS: 1967; 36415; 80307; 81005; 85025; 85027; 86592; 86850; 86900; 86901; 87086; 88307; 94760; J0131; J0295; J0696; J2300; J2405; J2550; J2590; J2795; J3010; J3490